=== PATIENT | female | born 1950 | race Caucasian/White ===

== ENCOUNTER 2024-06-30 11:33 | Inpatient (IN) | payer MEDICARE, OTHER ==
[~2024-06-30] VITALS: Ht 162.6 cm; Wt 75.4 kg
[2024-06-30 12:00] VITALS: RESP 13; O2SAT 97
--- NOTE | 2024-06-30 12:11 | ED.PDOC ---
GI ASSESSMENT HPI Comments 74y F who presents to the ED for chief complaint of GI bleeding. Pt states she got up this AM and states while using bathroom, he noticed bright red blood per rectum with associated dizziness and called EMS. Pt states bleeding has subsided prior to EMS arrival. EMS states pt had stable vitals upon arrival and brought to the ED. Pt in the ED, states she recently had colonoscopy and states a tumor in GI tract was found and states she was referred to oncologist. Pt in the ED, has noted BP of 103/55 and hr of 110 with all other vitals stable in the ED. Pt denies any other symptoms at this time. 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, Medications, Allergies Allergies: Coded Allergies: NO KNOWN ALLERGIES (Unverified , 06/30/24) Information Source: Patient, Emergency Med Personnel Mode of Arrival: EMS Brought in by: EMS Past Medical History PAST MEDICAL HISTORY: HTN Surgical History (Other): L knee replacement TUB PULLER History: Denies all TUB PULLER Hx Family History Family History: Unknown Social History Smoker: Non-Smoker Alcohol: Denies ETOH Use Drugs: Denies Drug Use Lives In: Home Constitutional: denies: chills, diaphoresis, fatigue, fever, malaise, sweats, weakness, others EENTM: denies: blurred vision, double vision, ear bleeding, ear discharge, ear drainage, ear pain, ear ringing, eye pain, eye redness, hearing loss, mouth pain, mouth swelling, nasal discharge, nose bleeding, nose congestion, nose pain, photophobia, tearing, throat pain, throat swelling, voice changes, others Respiratory: denies: cough, hemoptysis, orthopnea, SOB at rest, shortness of breath, SOB with excertion, stridor, wheezing, others Cardiovascular: denies: chest pain, dizzy spells, diaphoresis, Dyspnea on exertion, edema, irregular heart beat, left arm pain, lightheadedness, palpitations, PND, syncope, others Gastrointestinal: reports: rectal bleeding, rectal pain; denies: abdomen distended, abdominal pain, blood streaked bowels, constipated, diarrhea, dysphagia, difficulty swallowing, hematemesis, melena, nausea, poor appetite, poor fluid intake, vomiting, others Genitourinary: denies: abnormal vagina bleeding, burning, dyspareunia, dysuria, flank pain, frequency, hematuria, incontinence, pain, , vagina discharge, urgency, others Neurological: denies: dizziness, fainting, headache, left sided numbness, left sided weakness, numbness, paresthesia, pre-existing deficit, right sided numbnes s, right sided weakness, seizure, speech problems, tingling, tremors, weakness, others Musculoskeletal: denies: back pain, gout, joint pain, joint swelling, muscle pain, muscle stiffness, neck pain, others Integumetry: denies: bruises, change in color, change in hair/nails, dryness, laceration, lesions, lumps, rash, wounds, others Allergic/Immunocompromised: denies: Difficulty Healing, Frequent Infections, Hives, Itching, others Hematologic/Lymphatic: denies: anemia, blood clots, easy bleeding, easy bruising, swollen glands, others Endocrine: denies: excessive hunger, excessive sweating, excessive thirst, excessive urination, flushing, intolerance to cold, intolerance to heat, unexplained weight gain, unexplained weight loss, others Psychiatric: denies: anxiety, bipolar disorder, depression, hopeless, panic disorder, schizophrenia, sleepless, suicidal, others All Other Systems: Reviewed and Negative Physical Exam General Appearance: Moderate Distress HEENT: Normal ENT Inspection, Pharynx Normal, TMs Normal Neck: Full Range of Motion, Non-Tender, Normal, Normal Inspection Respiratory: Chest Non-Tender, Lungs Clear, No Accessory Muscle Use, No Respiratory Distress, Normal Breath Sounds Cardiovascular: No Edema, No JVD, No Murmur, No Gallop, Normal Peripheral Pulses, Tachycardia Breast Exam: Deferred Gastrointestinal: No Organomegaly, Non Tender, No Pulsatile Mass, Normal Bowel Sounds, Soft Genitalia: Deferred Pelvic: Deferred Rectal: Deferred Extremities: No calf tenderness, Normal capillary refill, Normal inspection, Normal range of motion, Non-tender, No pedal edema Musculoskeletal : Apperance: Normal Neurologic: Alert Cerebellar Function: NOT DONE Reflexes: NOT DONE Skin: Pallor Peripheral Pulses: 3+ Radial (R), 3+ Radial (L) Lymphatic: No Adenopathy Was a procedure done? Was a procedure done?: No GI differential Dx Differential Diagnosis: Constipation, Diverticular disease, Esophagitis, Ga stritis/PUD, Gastroenteritis, GI hemorrhage, Inflammatory BD, Ischemic Bowel, Trauma intraabdominal, Food Poisoning, Renal Failure, Ischemic Bowel, Stress Ulcer Other Differential Diagnosis colon cancer X-Ray, Labs, Meds, VS Vital Signs Date Time Temp Pulse Resp B/P (MAP) Pulse Ox O2 Delivery O2 Flow Rate FiO2 06/30/24 15:22 94 12 124/60 06/30/24 15:20 94 12 124/60 (81) 99 06/30/24 13:00 87 14 117/52 (73) 100 06/30/24 12:00 13 97 Room Air* 0 21 06/30/24 11:47 99.0 110 18 103/55 (71) 97 06/30/24 11:37 105 Lab Test 06/30/24 12:46 06/30/24 12:18 Range/Units White Blood Count 15.4 H 4.4-10.8 10^3/uL Red Blood Count 3.29 L 4.0-5.20 10^6/uL Hemoglobin 7.3 L 12.2-16.2 g/dL Hematocrit 23.3 L 36.0-46.0 % Mean Corpuscular Volume 70.9 L 80.0-100.0 fL Mean Corpuscular Hemoglobin 22.3 L 28.0-32.0 pg Mean Corpuscular Hemoglobin Concent 31.4 L 32.0-36.0 g/dL Red Cell Distribution Width 17.3 H 11.8-14.3 % Platelet Count 417 140-450 10^3/uL Mean Platelet Volume 6.0 L 6.9-10.8 fL Neutrophils (%) (Auto) 91.3 H 37.0-80.0 % Lymphocytes (%) (Auto) 3.9 L 10.0-50.0 % Monocytes (%) (Auto) 4.4 0.0-12.0 % Eosinophils (%) (Auto) 0.1 0.0-7.0 % Basophils (%) (Auto) 0.3 0.0-2.0 % Neutrophils # (Auto) 14.0 H 1.6-8.6 10 ^3/uL Lymphocytes # (Auto) 0.6 0.4-5.4 10 ^3/uL Monocytes # (Auto) 0.7 0-1.3 10 ^3/uL Eosinophils # (Auto) 0 0-0.8 10 ^3/uL Basophils # (Auto) 0 0-0.2 10 ^3/uL Nucleated Red Blood Cells 0.0 % Sodium Level 134 L 136-145 mmol/L Potassium Level 4.9 3.5-5.1 mmol/L Chloride Level 105 98-107 mmol/L Carbon Dioxide Level 25 20-31 mmol/L Anion Gap 4 L 5-15 Blood Urea Nitrogen 19 9-23 mg/dL Creatinine 0.80 0.550-1.02 mg/dL Glomerular Filtration Rate Calc 76 >90 mL/min BUN/Creatinine Ratio 23.8 H 10.0-20.0 Serum Glucose 93 74-106 mg/dL Calcium Level 8.8 8.7-10.4 mg/dL Troponin I High Sensitivity 4 </=34 ng/L Urine Color Light-yellow Yellow Urine Clarity Turbid H Clear Urine pH 6.5 5.0-9.0 Urine Specific [place] 1.015 1.001-1.035 Urine Protein Trace H Negative Urine Ketones Negative Negative Urine Blood 2+ H Negative /uL Urine Nitrite Negative Negative Urine Bilirubin Negative Negative Urine Urobilinogen Normal Negative mg/dL Urine Leukocyte Esterase 3+ Negative /uL Urine RBC 31 0 - 4 /hpf Urine WBC 54 0 - 5 /hpf Urine Squamous Epithelial Cells Few <5 /hpf Urine Bacteria Few H None Seen /hpf Urine Mucus Few None Seen Urine Glucose Normal Normal mg/dL Current Medications Medications (Trade) Dose Ordered Sig/Shayan Route Start Time Stop Time Status Last Admin Metronidazole 100 ml @ 100 mls/hr ONCE ONCE IV 06/30/24 13:15 06/30/24 14:14 DC 06/30/24 13:49 Ceftriaxone Sodium 50 ml @ 100 mls/hr ONCE ONCE IV 06/30/24 13:15 06/30/24 13:44 DC 06/30/24 13:49 Morphine Sulfate 2 mg ONCE ONCE IV 06/30/24 15:15 06/30/24 15:18 DC 06/30/24 15:22 Ondansetron HCl (Zofran) 4 mg ONCE ONCE IV 06/30/24 15:15 06/30/24 15:18 DC 06/30/24 15:21 PROCEDURE(s): CXRP - CHEST PORTABLE IMPRESSION: No acute cardiopulmonary abnormality. Patient alert. Complaining of GI bleeding. Bright red blood per rectum. Had a colonoscopy. Vitals stable pain Tachycardia. Blood pressure was on the low side in the field. Mild fever. Establish intravenous access. Was given fluids. GI consultation. Chest x-ray reviewed does not show any acute changes. EKG reviewed does not show any acute changes. Reviewed her previous visit. Explained to the patient. Time of 1ST Reevaluation: 12:40 Reevaluation 1ST: Unchanged Patient Education/Counseling: Diagnosis, Treatment Family Education/Counseling: No Family Present Departure 1 Departure Time of Disposition: 12:55 Impression: Primary Impression: GI bleed Qualified Codes: K92.2 - Gastrointestinal hemorrhage, unspecified Disposition: ADMITTED INPATIENT Admit to: Med Surg Condition: Guarded Critical Care Note Critical Care Time?: Yes (45 min-critical care time only) Critical care comment: GI bleed GI consultation Stability Stability form required: No Heart Score Heart Score: Heart Score Response (Comments) Value History N/A 0 EKG N/A 0 Age N/A 0 Risk Factors N/A 0 Troponin N/A 0 Total 0 I personally scribed for MAKAYLA CARIAS MD ([email or web address]) on 06/30/24 at 12:11. Electronically submitted by Hu Grimm ([email or web address]). I personally scribed for MAKAYLA CARIAS MD ([email or web address]) on 06/30/24 at 16:55. Electronically submitted by Hu MCKEON). MAKAYLA CARIAS MD Jun 30, 2024 12:11
--- NOTE | 2024-06-30 12:33 | DVH ---
EXAM: XY CHEST PORTABLE CLINICAL HISTORY: sob TECHNIQUE: Single AP view of the chest WID: COMPARISON: None FINDINGS: Lines and tubes: None Chest: The heart size and pulmonary vasculature is within normal limits. Mild calcified plaque projects over the aortic arch. No pleural effusion, pneumothorax, or consolidation. The osseous structures are grossly intact. IMPRESSION: No acute cardiopulmonary abnormality.
[2024-06-30 13:02] LABS: Urine Bacteria FEW /hpf (None Seen); Urine Blood 2+ /uL (Negative); Urine Clarity Turbid (Clear); Urine Color Light-Yellow (Yellow); Urine Mucus FEW (None Seen); Urine Protein, UAD TRACE (Negative); Urine Specific Gravity 1.015 (1.001-1.035); Urine Urobilinogen Normal (Negative); Urine WBC 54 /hpf (0 - 5); Urine pH 6.5 (5.0-9.0)
[2024-06-30 13:03] LABS: Basophils # (auto) 0 10 ^3/uL (0-0.2); Basophils % (auto) 0.3 % (0.0-2.0); Eosinophils # (auto) 0 10 ^3/uL (0-0.8); Eosinophils % (auto) 0.1 % (0.0-7.0)
[2024-06-30 13:05] LABS: Hematocrit 23.3 % (36.0-46.0); Hemoglobin 7.3 g/dL (12.2-16.2); Lymphocytes # (auto) 0.6 10 ^3/uL (0.4-5.4); Lymphocytes % (auto) 3.9 % (10.0-50.0); Mean Corpuscular Hemoglobin 22.3 pg (28.0-32.0); Mean Corpuscular Hgb Conc. 31.4 g/dL (32.0-36.0); Mean Corpuscular Volume 70.9 fL (80.0-100.0); Monocytes # (auto) 0.7 10 ^3/uL (0-1.3); Monocytes % (auto) 4.4 % (0.0-12.0); Neutrophils % (auto) 91.3 % (37.0-80.0); Platelet Count (auto) 417 10^3/uL (140-450); Red Blood Cells 3.29 10^6/uL (4.0-5.20); Red Cell Distribution Width 17.3 % (11.8-14.3); White Blood Cell 15.4 10^3/uL (4.4-10.8)
[2024-06-30 13:13] LABS: Chloride 105 mmol/L (98-107); Potassium 4.9 mmol/L (3.5-5.1); Sodium 134 mmol/L (136-145)
[2024-06-30 13:14] LABS: Anion Gap 4 (5-15); Carbon Dioxide 25 mmol/L (20-31)
[2024-06-30 13:15] LABS: Calcium 8.8 mg/dL (8.7-10.4)
[2024-06-30 13:20] LABS: BUN/Creatinine Ratio 23.8 (10.0-20.0); Blood Urea Nitrogen 19 mg/dL (9-23); Glucose 93 mg/dL (74-106)
[2024-06-30] MEDS: cefTRIAXone 1GM/50ML D5W 50 ML IV ONE (13:49)
[2024-06-30] MEDS: metroNIDAZOLE 500MG/100ML 100 ML IV ONE (13:49)
[2024-06-30] MEDS: ONDANSETRON HCL 4 MG/2 ML VIAL IV ONE (15:21)
[2024-06-30] MEDS: MORPHINE SULFATE INJ 2 MG/ml SYRG IV ONE (15:22)
[2024-06-30] MEDS ORDERED: ONDANSETRON HCL 4 MG/2 ML VIAL IV PRN (17:30)
[2024-06-30] MEDS ORDERED: CYCL0.05 EACHEYE (18:10)
[2024-06-30] MEDS ORDERED: TRAZ-227 PO (18:10)
[2024-06-30] MEDS ORDERED: ENAL1TAB48 PO (18:10)
[2024-06-30] MEDS ORDERED: AMLO1TAB22 PO (18:10)
--- NOTE | 2024-06-30 18:26 | DVHHP2 ---
History of Present Illness Reason for Visit: GI bleed History of Present Illness 74-year-old female presented to the ED with chief complaint of GI bleeding, patient states she got up this a.m. and use the bathroom and noticed bright red blood from the rectum, with associated dizziness and patient called EMS. Patient states that the bleeding stopped prior to EMS arrival. EMS states that patient had stable vitals on arrival and was brought to the ED. patient states she recently had a colonoscopy and states she has a tumor in her GI tract that is possibly cancerous and she was referred to an oncologist. Patient reports she has not had any bleeding since 0600 today. Patient denies chest pain, headache, dizziness, diaphoresis, shortness of breath, abdominal pain, no nausea, vomiting, fever, or chills endorsed by the patient. Patient was admitted for further evaluation medical management. Past Medical History Hypertension, insomnia, chronic back pain, colon cancer Past Surgical History Hip/knee surgery, back surgery Family History Reviewed noncontributory to the management of this case Smoke: No ALCOHOL: none Drugs: None Lives: with Family Review of Systems Constitutional: No: Fever, Chills, Sweats, Weakness, Malaise, Other Eyes: No: Pain, Vision change, Conjunctivae inflammation, Eyelid inflammation, Other, Redness ENT: No: Ear pain, Ear discharge, Nose pain, Nose discharge, Nose congestion, Mouth pain, Mouth swelling, Throat pain, Throat swelling, Other Respiratory: No: Cough, Dry, Shortness of breath, SOB with excertion, Wheezing, Hemoptysis, Pleuritic Pain, Sputum, Wheezing, Other Cardiovascular: No: Chest Pain, Palpitations, Orthopnea, Paroxysmal Noc. Dyspnea, Edema, Lt Headedness, Other Gastrointestinal: No: Nausea, Vomiting, Abdominal Pain, Diarrhea, Constipation, Melena, Hematochezia, Other Genitourinary: No Dysuria, No Frequency, No Incontinence, No Hematuria, No Retention, No Other Musculoskeletal: No: other, neck pain, shoulder pain, arm pain, back pain, hand pain, leg pain, foot pain Skin: No: Rash, Lesions, Jaundice, Bruising, Other Neurological: No: Weakness, Numbness, Incoordination, Change in speech, Confusion, Seizures, Other Allergies: Coded Allergies: NO KNOWN ALLERGIES (Unverified , 06/30/24) Medications Current Medications Medications Dose Ordered Sig/Shayan Route Start Time Stop Time Status Last Admin Dose Admin Ondansetron HCl 4 mg Q4HP PRN IV 06/30/24 17:30 Morphine Sulfate 2 mg Q4HPRN PRN IV 06/30/24 17:30 Pantoprazole Sodium 40 mg DAILY IV 06/30/24 17:45 Acetaminophen/ Hydrocodone Bitart 1 tab Q4HPRN PRN PO 06/30/24 18:15 UNV Amlodipine Besylate 5 mg BID PO 06/30/24 22:00 UNV Trazodone HCl 50 mg HS PO 06/30/24 22:00 UNV Enalapril Maleate 20 mg Q12HR PO 06/30/24 22:00 UNV Patient Own Medication 1 drop BID EACHEYE 06/30/24 22:00 UNV Exam Vital Signs Vital Signs Date Time Temp Pulse Resp B/P (MAP) Pulse Ox O2 Delivery O2 Flow Rate FiO2 06/30/24 15:22 94 12 124/60 06/30/24 15:20 99 06/30/24 12:00 Room Air* 0 21 06/30/24 11:47 99.0 General Appearance: Alert, Oriented X3, Cooperative, No acute distress HEENT: Atraumatic, PERRLA, EOMI, Mucous membr. moist/pink Respiratory: Clear to auscultation, Normal air movement Cardiovascular: Regular rate, Normal S1, Normal S2, No murmurs Abdominal: Normal bowel sounds, Soft, No tenderness, No hepatospenomegaly, No masses Extremities: No clubbing, No cyanosis, No edema, Normal pulses, No tenderness/swelling Skin: No rashes, No breakdown, No significant lesion Neuro: Normal gait, Normal speech, Normal tone, Sensation intact, Cranial nerves 3-12 NL, Reflexes 2+ Psych/Mental Status: Mental status NL, Mood NL Labs/Xrays Labs, imaging and ED notes reviewed Labs Test 06/30/24 12:46 06/30/24 12:18 Range/Units White Blood Count 15.4 H 4.4-10.8 10^3/uL Red Blood Count 3.29 L 4.0-5.20 10^6/uL Hemoglobin 7.3 L 12.2-16.2 g/dL Hematocrit 23.3 L 36.0-46.0 % Mean Corpuscular Volume 70.9 L 80.0-100.0 fL Mean Corpuscular Hemoglobin 22.3 L 28.0-32.0 pg Mean Corpuscular Hemoglobin Concent 31.4 L 32.0-36.0 g/dL Red Cell Distribution Width 17.3 H 11.8-14.3 % Platelet Count 417 140-450 10^3/uL Mean Platelet Volume 6.0 L 6.9-10.8 fL Neutrophils (%) (Auto) 91.3 H 37.0-80.0 % Lymphocytes (%) (Auto) 3.9 L 10.0-50.0 % Monocytes (%) (Auto) 4.4 0.0-12.0 % Eosinophils (%) (Auto) 0.1 0.0-7.0 % Basophils (%) (Auto) 0.3 0.0-2.0 % Neutrophils # (Auto) 14.0 H 1.6-8.6 10 ^3/uL Lymphocytes # (Auto) 0.6 0.4-5.4 10 ^3/uL Monocytes # (Auto) 0.7 0-1.3 10 ^3/uL Eosinophils # (Auto) 0 0-0.8 10 ^3/uL Basophils # (Auto) 0 0-0.2 10 ^3/uL Nucleated Red Blood Cells 0.0 % Sodium Level 134 L 136-145 mmol/L Potassium Level 4.9 3.5-5.1 mmol/L Chloride Level 105 98-107 mmol/L Carbon Dioxide Level 25 20-31 mmol/L Anion Gap 4 L 5-15 Blood Urea Nitrogen 19 9-23 mg/dL Creatinine 0.80 0.550-1.02 mg/dL Glomerular Filtration Rate Calc 76 >90 mL/min BUN/Creatinine Ratio 23.8 H 10.0-20.0 Serum Glucose 93 74-106 mg/dL Calcium Level 8.8 8.7-10.4 mg/dL Troponin I High Sensitivity 4 </=34 ng/L Urine Color Light-yellow Yellow Urine Clarity Turbid H Clear Urine pH 6.5 5.0-9.0 Urine Specific [place] 1.015 1.001-1.035 Urine Protein Trace H Negative Urine Ketones Negative Negative Urine Blood 2+ H Negative /uL Urine Nitrite Negative Negative Urine Bilirubin Negative Negative Urine Urobilinogen Normal Negative mg/dL Urine Leukocyte Esterase 3+ Negative /uL Urine RBC 31 0 - 4 /hpf Urine WBC 54 0 - 5 /hpf Urine Squamous Epithelial Cells Few <5 /hpf Urine Bacteria Few H None Seen /hpf Urine Mucus Few None Seen Urine Glucose Normal Normal mg/dL Assessment/Plan Assessment/Plan GI bleed secondary to GI tumor Admit to medical/surgical Consult GI Hemoglobin 7.3- pending blood transfusion Follow up a.m. 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 17:17 Bedside Commode [facility] 06/30/24 In Process 17:17 Notify Of Changes [facility] 06/30/24 In Process From Base 17:17 Advance Directive [facility] 06/30/24 In Process 17:17 Basic Metabolic Panel LAB 07/01/24 Verified 04:00 Complete Blood Count LAB 07/01/24 Verified 04:00 Patient Condition ORDERS 06/30/24 Transmitted 17:17 Allergies [facility] 06/30/24 In Process 17:17 Ondansetron Hcl [facility] 06/30/24 In Process (Zofran) 17:30 Morphine Sulfate PHA 06/30/24 In Process Injection 17:30 Pantoprazole PHA 06/30/24 In Process (Protonix) 17:45 Clear Liq Diet DIET 06/30/24 Transmitted Dinner Hydrocodone-Acet PHA 06/30/24 Logged 5/325mg Tab ([place] 18:15 Amlodipine Tablet PHA 06/30/24 Logged (Norvasc Tablet) 22:00 Trazodone Hcl PHA 06/30/24 Logged (Desyrel) 22:00 Enalapril Tablet PHA 06/30/24 Logged (Vasotec Tablet) 22:00 (Nf) Cyclosporine PHA 06/30/24 Logged (Ophth) (Restasis) 22:00 Date of Service: Jun 30, 2024 Billing Provider: MARLENY MESSER Common Visit Codes: [id number] INP/OBS CARE (HIGH) MARLENY MESSER Jun 30, 2024 18:26
[2024-06-30 18:46] VITALS: BP 120/57; PULSE 90; RESP 19; TEMP 97.6
[2024-06-30 18:50] VITALS: BP 120/57; PULSE 90; RESP 19; TEMP 97.4; O2SAT 99
[2024-06-30] MEDS: MORPHINE SULFATE INJ 2 MG/ml SYRG IV PRN (18:59)
[2024-06-30] MEDS: PANTOPRAZOLE 40 MG/10 ML VIAL INJ IV SCH (19:20)
--- NOTE | 2024-06-30 19:20 | ECG ---
[facility] Test Date: 2024-06-30 Test Time: 11:34:02 Pat Name: ABRAHAM DAVIS Department: ED Room: 0218 Gender: F Mill [employer]: CHARLES : 1950 Requested By: MAKAYLA CARIAS Order Number: [id number] Reading MD: Measurements Intervals Soldier Rate: 105 P: 23 SC: 152 QRS: 12 QRSD: 89 T: 53 QT: 319 QTc: 422 Interpretive Statements Sinus tachycardia Atrial premature complex Borderline low voltage, extremity leads Artifact in lead(s) I,III,aVR,aVL,V1,V2,V3,V4,V5,V6 Please click the below link to view image of tracing.
[2024-06-30 21:00] VITALS: BP_SYST 113; BP_SYST 117; BP_DIAS 52; BP_DIAS 54; PULSE 86; PULSE 92; RESP 18; RESP 20; TEMP 98.3; TEMP 99.1; O2SAT 93
[2024-06-30 21:24] VITALS: BP 115/56; PULSE 90; RESP 18; TEMP 98.4
[2024-06-30 21:25] VITALS: BP 115/56; PULSE 90; RESP 18; TEMP 98.4
[2024-06-30] MEDS: CYCLOSPORINE EACHEYE SCH (22:00)
[2024-06-30] MEDS: ENALAPRIL MALEATE 10 MG TAB PO SCH (22:32)
[2024-06-30] MEDS: amLODIPine BESYLATE 5 MG TAB PO SCH (22:33)
[2024-06-30] MEDS: traZODone HCL 50 MG TAB PO SCH (22:34)
[2024-07-01] VITALS (7 sets, daily range): BP systolic 106–123; BP diastolic 49–62; PULSE 74–95; RESP 17–19; TEMP 98.3–99.8; O2SAT 91–100
[2024-07-01 05:54] LABS: Basophils # (auto) 0.1 10 ^3/uL (0-0.2); Basophils % (auto) 0.5 % (0.0-2.0); Eosinophils # (auto) 0.1 10 ^3/uL (0-0.8); Hemoglobin 7.7 g/dL (12.2-16.2); Lymphocytes # (auto) 0.9 10 ^3/uL (0.4-5.4); Mean Corpuscular Hgb Conc. 32.3 g/dL (32.0-36.0)
[2024-07-01 05:57] LABS: Eosinophils % (auto) 0.5 % (0.0-7.0); Hematocrit 23.8 % (36.0-46.0); Mean Corpuscular Hemoglobin 23.6 pg (28.0-32.0); Monocytes % (auto) 9.3 % (0.0-12.0); Neutrophils % (auto) 81.7 % (37.0-80.0); Platelet Count (auto) 357 10^3/uL (140-450); Red Blood Cells 3.26 10^6/uL (4.0-5.20); Red Cell Distribution Width 20.5 % (11.8-14.3)
[2024-07-01 06:13] LABS: Chloride 105 mmol/L (98-107); Potassium 4.1 mmol/L (3.5-5.1); Sodium 137 mmol/L (136-145)
[2024-07-01 06:14] LABS: Anion Gap 7 (5-15); Calcium 8.7 mg/dL (8.7-10.4); Carbon Dioxide 25 mmol/L (20-31)
[2024-07-01 06:19] LABS: BUN/Creatinine Ratio 14.5 (10.0-20.0); Blood Urea Nitrogen 11 mg/dL (9-23); Glucose 91 mg/dL (74-106)
--- NOTE | 2024-07-01 08:53 | DVHPN2 ---
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 General Appearance: Alert, Oriented X3, Cooperative, No acute distress, Other (Pale) HEENT: Atraumatic, Other (Pale) Lungs: Clear to auscultation, Normal air movement Cardiovascular: Regular rate, Normal S1, Normal S2 Abdomen: Normal bowel sounds, Soft, No tenderness Rectal: Mass Extremities: No edema Neuro: Normal speech, Cranial nerves 3-12 NL Psych/Mental Status: Mental status NL, Mood NL Medications Current Medications Medications Dose Ordered Sig/Shayan Route Start Time Stop Time Status Last Admin Dose Admin Ondansetron HCl 4 mg Q4HP PRN IV 06/30/24 17:30 Morphine Sulfate 2 mg Q4HPRN PRN IV 06/30/24 17:30 07/01/24 08:34 2 MG Pantoprazole Sodium 40 mg DAILY IV 06/30/24 17:45 07/01/24 08:34 40 MG Acetaminophen/ Hydrocodone Bitart 1 tab Q4HPRN PRN PO 06/30/24 18:15 Amlodipine Besylate 5 mg BID PO 06/30/24 22:00 07/01/24 08:35 5 MG Trazodone HCl 50 mg HS PO 06/30/24 22:00 06/30/24 22:34 50 MG Enalapril Maleate 20 mg Q12HR PO 06/30/24 22:00 07/01/24 08:35 20 MG Patient Own Medication 1 drop BID EACHEYE 06/30/24 22:00 Laboratory Results Laboratory Tests 07/01/24 04:54 Chemistry Test 06/30/24 12:46 07/01/24 04:54 Calcium Level 8.8 mg/dL (8.7-10.4) 8.7 mg/dL (8.7-10.4) Urinalysis Test 06/30/24 12:18 Urine Color Light-yellow (Yellow) Urine Clarity Turbid (Clear) H Urine pH 6.5 (5.0-9.0) Urine Specific [place] 1.015 (1.001-1.035) Urine Protein Trace (Negative) H Urine Ketones Negative (Negative) Urine Blood 2+ /uL (Negative) H Urine Nitrite Negative (Negative) Urine Bilirubin Negative (Negative) Urine Urobilinogen Normal mg/dL (Negative) Urine Leukocyte Esterase 3+ /uL (Negative) Urine RBC 31 /hpf (0 - 4) Urine WBC 54 /hpf (0 - 5) Urine Squamous Epithelial Cells Few /hpf (<5) Urine Bacteria Few /hpf (None Seen) H Urine Mucus Few (None Seen) Urine Glucose Normal mg/dL (Normal) Labs and/or images reviewed: Labs reviewed by me, Image(s) reviewed by me Assessment/Plan Assessment/Plan A 74-year-old female patient; with past medical history of essential hypertension and severe dry eyes syndrome; who was recently developed rectal mass then underwent recent colonoscopy at [facility]; who presented to the emergency department with rectal bleed. #Sepsis due to suspected abdominal infection in the setting of suspected metastatic rectal cancer #Leukocytosis due to sepsis #PRUDENCE; most likely vasomotor nephropathy in the setting of sepsis Continue IV antibiotics Continue IV fluids Avoid nephrotoxic agents Continue close monitoring #GI bleed most likely due to bleeding rectal mass/suspected cancer #Acute blood loss anemia status post transfusion of 1 unit of packed RBCs #Suspected metastatic rectal cancer to inguinal lymph nodes #Rectal pain due to rectal mass/suspected cancer Ordered abdomen/pelvis CT then reviewed imaging studies GI onboard; advised outpatient follow up with GI and Oncology; advanced diet as tolerated To readdress doing biopsy from left inguinal lymphadenopathy with the patient before discharge Continue pain management as needed Keep close monitoring of hemoglobin and hematocrit #Essential hypertension Continue home medications and adjusting according to blood pressure readings #Severe dry eyes syndrome Continue home cyclosporine eyedrops Goals of care discussed for 20 minutes; full code 66 minutes of critical care time This medical document was created using an electronic medical record system with computerized dictation system. Although this document has been carefully reviewed, there might still be some phonetic and typographical errors. These areas are purely typographical due to imperfections of the software programs, and do not reflect any compromise in the patient's medical care. Plan discussed with: Patient, Other (Nurse) Date of Service: Jul 01, 2024 Billing Provider: ELEONORA BE MD Common Visit Codes: 89849-[id number] CARE 30-74 MIN (66 minutes) Secondary Visit Codes: [id number]-[id number] CARE PLAN 30 MINUTES (20 minutes) ELEONORA BE MD Jul 01, 2024 08:53
--- NOTE | 2024-07-01 09:59 | DVH ---
CT ABDOMEN AND PELVIS WITHOUT CONTRAST CLINICAL HISTORY: GI bleed. Thank You! TECHNIQUE: Multidetector CT of the abdomen was performed from lung bases to pubic symphysis. Imaging was performed without IV contrast. Axial, coronal and sagittal multiplanar reformats were obtained fr om the axial data set by the technologist. Radiation optimization: All CT scans at this facility use at least one of these dose optimization nelly hniques: automated exposure control mA and/or kV adjustment per patient size (includes targeted exam s where dose is matched to clinical indication) or iterative reconstruction. Radiation Dose Information: CT Dose: CTDI volume is 9.85 mGy. Dose-length product is 508.43 mGy*cm Comparison: None FINDINGS: [Findings] Evaluation of the abdominal viscera is limited without intravenous contrast. The liver, gallbladder, pancreas, kidneys, adrenal glands, and spleen appear within normal limits. There is no gross evidence of abdominal lymphadenopathy. There is no free fluid or free air. The stomach grossly appears unremarkable. The small and large bowel loops demonstrate normal caliber. Air intermixed with stool is seen throughout the colon. There is large amount of streak artifact from bilateral hip arthroplasties and lumbar spine fusion hussein rdware which limits evaluation of the pelvis. The distal rectum and anus are not adequately seen. Th ere is nonspecific moderate fat stranding in the mesorectal fat with scattered lymph nodes in the reg ion measuring up to 10 mm. There are also prominent right and left inguinal lymph nodes measuring 1.6 cm on the right and 1.3 cm on the left. The abdominal aorta and IVC appear within normal limits. Visualized bladder and uterus grossly appear unremarkable. There is no free fluid in the pelvis. There is dependent atelectasis in the posterior lung bases. There are degenerative changes in the lumbar spine. There is fusion hardware at the L4-L5 and L5-S1 levels. IMPRESSION: 1. Large amount of streak artifact from bilateral hip arthroplasties and lumbar spine fusion hardware limits evaluation of the pelvis. The distal rectum and anus are not adequately seen. There is nonspe cific moderate fat stranding in the mesorectal fat with scattered lymph nodes in this region measurin g up to 10 mm. There are also prominent right and left inguinal lymph nodes measuring up to 1.6 cm. T he etiology is nonspecific. Correlation with colonoscopy findings is recommended. Ultrasound-guided b iopsy of an inguinal lymph node may be performed if there is concern for malignancy/metastatic disedenilson talavera HS:Y
[2024-07-01] MEDS: cefTRIAXone 1GM/50ML D5W 50 ML IV SCH (11:12)
[2024-07-01] MEDS: metroNIDAZOLE 500MG/100ML 100 ML IV ONE (11:13)
[2024-07-01 12:16] LABS: Hematocrit 25.7 % (36.0-46.0); Hemoglobin 8.2 g/dL (12.2-16.2)
--- NOTE | 2024-07-01 13:17 | DVHINCON2 ---
GI Consult Consult Note GI consult note Date of Consultation: 07/01/2024 Chief Complaint: Lower GI bleeding Referring Physician: Dr. Jessica H&P: 74-year-old female admitted with GI bleeding. Patient had red blood rectally starting yesterday morning, no red blood now. No melena . No abdominal pain. No nausea or vomiting. Patient does not take any blood thinners Patient was hospitalized in [facility] a week ago with similar symptoms, SP colonoscopy, diagnosed with colon cancer, and was referred to radiation oncologist. Patient has weight loss of 10 lb in the last few weeks Past Medical History: HTN Past Surgical History: L knee replacement Social History: NO smoking, drinking ETOH and use of illegal drugs. Family History: Unknown Review of Systems: Constitutional: no fever, chill, weight loss Heart: no chest pain, no chest pressure Lung: no cough, no dyspnea with exertion Abdomen: see HPI Physical exam: General: NAD, AAOX3 Chest: lung ayala clear to auscultation Heart: RRR, no murmur Abdomen: non-distended, no tenderness to palpation, +BS Labs: Labs Test 07/01/24 11:54 07/01/24 04:54 06/30/24 12:46 06/30/24 12:18 Range/Units Hemoglobin 8.2 L 12.2-16.2 g/dL Hematocrit 25.7 L 36.0-46.0 % White Blood Count 11.0 #H 4.4-10.8 10^3/uL Red Blood Count 3.26 L 4.0-5.20 10^6/uL Mean Corpuscular Volume 73.0 L 80.0-100.0 fL Mean Corpuscular Hemoglobin 23.6 L 28.0-32.0 pg Mean Corpuscular Hemoglobin Concent 32.3 32.0-36.0 g/dL Red Cell Distribution Width 20.5 H 11.8-14.3 % Platelet Count 357 140-450 10^3/uL Mean Platelet Volume 6.7 L 6.9-10.8 fL Neutrophils (%) (Auto) 81.7 H 37.0-80.0 % Lymphocytes (%) (Auto) 8.0 L 10.0-50.0 % Monocytes (%) (Auto) 9.3 0.0-12.0 % Eosinophils (%) (Auto) 0.5 0.0-7.0 % Basophils (%) (Auto) 0.5 0.0-2.0 % Neutrophils # (Auto) 9.0 H 1.6-8.6 10 ^3/uL Lymphocytes # (Auto) 0.9 0.4-5.4 10 ^3/uL Monocytes # (Auto) 1.0 0-1.3 10 ^3/uL Eosinophils # (Auto) 0.1 0-0.8 10 ^3/uL Basophils # (Auto) 0.1 0-0.2 10 ^3/uL Nucleated Red Blood Cells 0.0 % Sodium Level 137 136-145 mmol/L Potassium Level 4.1 3.5-5.1 mmol/L Chloride Level 105 98-107 mmol/L Carbon Dioxide Level 25 20-31 mmol/L Anion Gap 7 5-15 Blood Urea Nitrogen 11 9-23 mg/dL Creatinine 0.76 0.550-1.02 mg/dL Glomerular Filtration Rate Calc 81 >90 mL/min BUN/Creatinine Ratio 14.5 10.0-20.0 Serum Glucose 91 74-106 mg/dL Calcium Level 8.7 8.7-10.4 mg/dL Troponin I High Sensitivity 4 </=34 ng/L Urine Color Light-yellow Yellow Urine Clarity Turbid H Clear Urine pH 6.5 5.0-9.0 Urine Specific [place] 1.015 1.001-1.035 Urine Protein Trace H Negative Urine Ketones Negative Negative Urine Blood 2+ H Negative /uL Urine Nitrite Negative Negative Urine Bilirubin Negative Negative Urine Urobilinogen Normal Negative mg/dL Urine Leukocyte Esterase 3+ Negative /uL Urine RBC 31 0 - 4 /hpf Urine WBC 54 0 - 5 /hpf Urine Squamous Epithelial Cells Few <5 /hpf Urine Bacteria Few H None Seen /hpf Urine Mucus Few None Seen Urine Glucose Normal Normal mg/dL Imaging: CT abdomen pelvis IMPRESSION: 1. Large amount of streak artifact from bilateral hip arthroplasties and lumbar spine fusion hardware limits evaluation of the pelvis. The distal rectum and anus are not adequately seen. There is nonspecific moderate fat stranding in the mesorectal fat with scattered lymph nodes in this region measuring up to 10 mm. There are also prominent right and left inguinal lymph nodes measuring up to 1.6 cm. The etiology is nonspecific. Correlation with colonoscopy findings is recommended. Ultrasound-guided biopsy of an inguinal lymph node may be performed if there is concern for malignancy/metastatic disease. Assessment: Acute GI bleed History of colon cancer Anemia Plan: Discussed with Dr. Hameed Monitor lab Obtain records from [facility] liquid diet advance as tolerated Outpatient follow-up with GI and oncology recommended Discussed plan with patient, and RN Thank you for this consult Date of Service: Jul 01, 2024 Billing Provider: CECE PACE Common Visit Codes: CONSULT ONLY Consultation Codes: [id number] CONSULT <45MIN CECE PACE Jul 01, 2024 13:17
[2024-07-01] MEDS: MORPHINE SULFATE INJ 2 MG/ml SYRG IV PRN (13:22)
[2024-07-01] MEDS: metroNIDAZOLE 500MG/100ML 100 ML IV SCH (16:38)
[2024-07-01] MEDS ORDERED: HYDR25TA4 PO (17:19)
[2024-07-01] MEDS ORDERED: LINA145C PO (17:19)
[2024-07-01] MEDS ORDERED: TIMO0.5S28 EACHEYE (17:19)
[2024-07-02 01:00] VITALS: BP 110/58; PULSE 86; RESP 18; TEMP 99.3; O2SAT 97
[2024-07-02 05:00] VITALS: BP 114/59; PULSE 82; RESP 18; TEMP 98; O2SAT 98
[2024-07-02 06:32] LABS: Basophils # (auto) 0 10 ^3/uL (0-0.2); Basophils % (auto) 0.4 % (0.0-2.0); Hemoglobin 7.9 g/dL (12.2-16.2); Lymphocytes # (auto) 1.2 10 ^3/uL (0.4-5.4); Lymphocytes % (auto) 12.7 % (10.0-50.0); Monocytes # (auto) 1.1 10 ^3/uL (0-1.3); Neutrophils # (auto) 6.9 10 ^3/uL (1.6-8.6)
[2024-07-02 06:34] LABS: Eosinophils # (auto) 0.1 10 ^3/uL (0-0.8); Hematocrit 24.3 % (36.0-46.0); Mean Corpuscular Hemoglobin 23.8 pg (28.0-32.0); Mean Corpuscular Hgb Conc. 32.4 g/dL (32.0-36.0); Mean Corpuscular Volume 73.6 fL (80.0-100.0); Monocytes % (auto) 11.7 % (0.0-12.0); Neutrophils % (auto) 74.2 % (37.0-80.0); Platelet Count (auto) 344 10^3/uL (140-450); Red Cell Distribution Width 20.7 % (11.8-14.3); White Blood Cell 9.3 10^3/uL (4.4-10.8)
[2024-07-02 06:44] LABS: Alanine Aminotransferase 10 U/L (7-40); Albumin 3.3 g/dL (3.2-4.8); Alkaline Phosphatase 58 U/L (46-116); Anion Gap 7 (5-15); Aspartate Aminotransferase 18 U/L (13-40); BUN/Creatinine Ratio 15.1 (10.0-20.0); Bilirubin, Total 0.4 mg/dL (0.2-1.0); Blood Urea Nitrogen 14 mg/dL (9-23); Calcium 8.7 mg/dL (8.7-10.4); Carbon Dioxide 23 mmol/L (20-31); Chloride 106 mmol/L (98-107); Glucose 96 mg/dL (74-106); Potassium 3.9 mmol/L (3.5-5.1); Sodium 136 mmol/L (136-145); Total Protein 4.9 g/dL (5.7-8.2)
[2024-07-02 08:56] VITALS: BP 132/68; PULSE 86; RESP 16; TEMP 97.8; O2SAT 98
--- NOTE | 2024-07-02 11:34 | DVHPN2 ---
Reviewed: Care Plan, H&P, Labs, Medications, Previous Orders, Radiology, Other (Consultation) Changes from previous H/P or p: No Changes Objective Vitals Vital Signs Date Time Temp Pulse Resp B/P (MAP) Pulse Ox O2 Delivery O2 Flow Rate FiO2 07/02/24 10:00 117/58 07/02/24 08:56 97.8 86 16 98 97.8 07/01/24 20:00 Room Air* 0 21 Intake/Output Intake and Output 07/02/24 07:00 Intake Total 550 ml Balance 550 ml Intake Oral 300 ml IV Total 250 ml # Voids 4 # Bowel Movements 3 General Appearance: Alert, Oriented X3, Cooperative, No acute distress, Other (Pale) HEENT: Atraumatic, Other (Pale) Lungs: Clear to auscultation, Normal air movement Cardiovascular: Regular rate, Normal S1, Normal S2 Abdomen: Normal bowel sounds, Soft, No tenderness Rectal: Mass Extremities: No edema Neuro: Normal speech, Cranial nerves 3-12 NL Psych/Mental Status: Mental status NL, Mood NL Medications Current Medications Medications Dose Ordered Sig/Shayan Route Start Time Stop Time Status Last Admin Dose Admin Ondansetron HCl 4 mg Q4HP PRN IV 06/30/24 17:30 Pantoprazole Sodium 40 mg DAILY IV 06/30/24 17:45 07/02/24 10:47 40 MG Acetaminophen/ Hydrocodone Bitart 1 tab Q4HPRN PRN PO 06/30/24 18:15 Amlodipine Besylate 5 mg BID PO 06/30/24 22:00 07/01/24 08:35 5 MG Trazodone HCl 50 mg HS PO 06/30/24 22:00 07/01/24 21:07 50 MG Enalapril Maleate 20 mg Q12HR PO 06/30/24 22:00 07/01/24 08:35 20 MG Patient Own Medication 1 drop BID EACHEYE 06/30/24 22:00 07/01/24 09:10 1 DROP Ceftriaxone Sodium 50 ml @ 100 mls/hr DAILY@09 IV 07/01/24 09:00 07/02/24 10:47 100 MLS/HR Metronidazole 100 ml @ 100 mls/hr Q8HR IV 07/01/24 14:00 07/02/24 05:25 100 MLS/HR Morphine Sulfate 2 mg Q2HPRN PRN IV 07/01/24 11:00 07/02/24 05:24 2 MG Laboratory Results Laboratory Tests 07/02/24 05:48 Chemistry Test 07/02/24 05:48 Albumin 3.3 g/dL (3.2-4.8) Calcium Level 8.7 mg/dL (8.7-10.4) Total Protein 4.9 g/dL (5.7-8.2) L LFT Test 07/02/24 05:48 Alanine Aminotransferase (ALT) 10 U/L (7-40) Alkaline Phosphatase 58 U/L (46-116) Aspartate Amino Transferase (AST) 18 U/L (13-40) Total Bilirubin 0.4 mg/dL (0.2-1.0) Urinalysis Test 06/30/24 12:18 Urine Color Light-yellow (Yellow) Urine Clarity Turbid (Clear) H Urine pH 6.5 (5.0-9.0) Urine Specific [place] 1.015 (1.001-1.035) Urine Protein Trace (Negative) H Urine Ketones Negative (Negative) Urine Blood 2+ /uL (Negative) H Urine Nitrite Negative (Negative) Urine Bilirubin Negative (Negative) Urine Urobilinogen Normal mg/dL (Negative) Urine Leukocyte Esterase 3+ /uL (Negative) Urine RBC 31 /hpf (0 - 4) Urine WBC 54 /hpf (0 - 5) Urine Squamous Epithelial Cells Few /hpf (<5) Urine Bacteria Few /hpf (None Seen) H Urine Mucus Few (None Seen) Urine Glucose Normal mg/dL (Normal) Labs and/or images reviewed: Labs reviewed by me, Image(s) reviewed by me Assessment/Plan Assessment/Plan Sepsis secondary to acute urinary tract infection: Blood cultures urine cultures Acute urinary tract infection: Rocephin Leukocytosis secondary to sepsis Acute kidney injury History of rectal cancer diagnosed at [facility] by colonoscopy one week ago, patient's PCP Dr. Meade arranging oncology consultation with Dr. London GI bleed secondary to rectal mass suspected cancer: GI consult by Dr. Judy Hameed appreciated Acute blood loss anemia status post 1 unit RBC transfusion Rectal pain due to rectal cancer Awaiting urine culture report Plan discussed with: Patient Date of Service: Jul 02, 2024 Billing Provider: TRINIDAD PACE MD Common Visit Codes: [id number] INP/OBS CARE(HIGH) TRINIDAD PACE MD Jul 02, 2024 11:34
[2024-07-02 13:00] VITALS: BP 125/73; PULSE 85; RESP 16; TEMP 97.5; O2SAT 96
[2024-07-02 17:00] VITALS: BP 133/68; PULSE 84; RESP 14; TEMP 98.1; O2SAT 98
[2024-07-02] MEDS: HYDROcodone-ACET 5/325MG TAB PO PRN (17:57)
--- NOTE | 2024-07-02 17:57 | DVHPN2 ---
Progress Note - Dictate Date Seen: Jul 02, 2024 Medical Necessity Reason Pt with a Central, PICC or Fol: No Subjective Pt seen at bedside No further bleeding Pt is now anxious to go home vital signs Vital Sign Date Time Temp Pulse Resp B/P (MAP) Pulse Ox O2 Delivery O2 Flow Rate FiO2 07/02/24 16:16 83 16 133/69 07/02/24 13:00 97.5 96 97.5 07/01/24 20:00 Room Air* 0 21 Total Intake and Output 07/01/24 07/01/24 07/02/24 15:00 23:00 07:00 Intake Total 50 ml 500 ml 0 ml Balance 50 ml 500 ml 0 ml medications Current Medications Medications Dose Ordered Sig/Shayan Route Start Time Stop Time Status Last Admin Dose Admin Ondansetron HCl 4 mg Q4HP PRN IV 06/30/24 17:30 Pantoprazole Sodium 40 mg DAILY IV 06/30/24 17:45 07/02/24 10:47 40 MG Acetaminophen/ Hydrocodone Bitart 1 tab Q4HPRN PRN PO 06/30/24 18:15 Amlodipine Besylate 5 mg BID PO 06/30/24 22:00 07/01/24 08:35 5 MG Trazodone HCl 50 mg HS PO 06/30/24 22:00 07/01/24 21:07 50 MG Enalapril Maleate 20 mg Q12HR PO 06/30/24 22:00 07/01/24 08:35 20 MG Patient Own Medication 1 drop BID EACHEYE 06/30/24 22:00 07/01/24 09:10 1 DROP Ceftriaxone Sodium 50 ml @ 100 mls/hr DAILY@09 IV 07/01/24 09:00 07/02/24 10:47 100 MLS/HR Metronidazole 100 ml @ 100 mls/hr Q8HR IV 07/01/24 14:00 07/02/24 15:46 100 MLS/HR Morphine Sulfate 2 mg Q2HPRN PRN IV 07/01/24 11:00 07/02/24 15:46 2 MG objective General: NAD, AAOX3 Chest: lung ayala clear to auscultation Heart: RRR, no murmur Abdomen: non-distended, no tenderness to palpation, +BS laboratory and microbiology Laboratory Tests 07/02/24 05:48 Test 07/02/24 05:48 Range/Units Serum Glucose 96 74-106 mg/dL CT SCAN ABD PELVIS IMPRESSION: 1. Large amount of streak artifact from bilateral hip arthroplasties and lumbar spine fusion hardware limits evaluation of the pelvis. The distal rectum and anus are not adequately seen. There is nonspecific moderate fat stranding in the mesorectal fat with scattered lymph nodes in this region measuring up to 10 mm. There are also prominent right and left inguinal lymph nodes measuring up to 1.6 cm. The etiology is nonspecific. Correlation with colonoscopy findings is recommended. Ultrasound-guided biopsy of an inguinal lymph node may be performed if there is concern for malignancy/metastatic disease. Problems(with codes): (1) Rectal mass (2) GI bleed Prognosis PLAN Advance diet as tolerated Hold aspirin and blood thinners Outpatient follow up with PCP next week Patient has been referred to Radiation oncologist and we will need Oncology referral Await final pathology report Prognosis remains guarded Plan discussed with: Patient, Other (Nurse) KEVAN MONROE MD Jul 02, 2024 17:57
[2024-07-02 21:00] VITALS: BP 116/63; PULSE 81; RESP 18; TEMP 98.1; O2SAT 94
[2024-07-03 01:00] VITALS: BP 122/65; PULSE 92; RESP 18; TEMP 97.9; O2SAT 93
[2024-07-03 04:38] LABS: Eosinophils # (auto) 0.2 10 ^3/uL (0-0.8); Hemoglobin 8.1 g/dL (12.2-16.2); Lymphocytes # (auto) 1.2 10 ^3/uL (0.4-5.4)
[2024-07-03 04:40] LABS: Alanine Aminotransferase 10 U/L (7-40); Albumin 3.3 g/dL (3.2-4.8); Alkaline Phosphatase 61 U/L (46-116); Anion Gap 4 (5-15); Aspartate Aminotransferase 15 U/L (13-40); BUN/Creatinine Ratio 17.9 (10.0-20.0); Bilirubin, Total 0.3 mg/dL (0.2-1.0); Blood Urea Nitrogen 15 mg/dL (9-23); Carbon Dioxide 25 mmol/L (20-31); Chloride 105 mmol/L (98-107); Glucose 92 mg/dL (74-106); Potassium 4.2 mmol/L (3.5-5.1); Sodium 134 mmol/L (136-145); Total Protein 4.9 g/dL (5.7-8.2)
[2024-07-03 04:41] LABS: Basophils # (auto) 0.1 10 ^3/uL (0-0.2); Basophils % (auto) 0.5 % (0.0-2.0); Eosinophils % (auto) 1.7 % (0.0-7.0); Hematocrit 24.4 % (36.0-46.0); Lymphocytes % (auto) 11.4 % (10.0-50.0); Mean Corpuscular Hemoglobin 24.3 pg (28.0-32.0); Mean Corpuscular Hgb Conc. 33.1 g/dL (32.0-36.0); Mean Corpuscular Volume 73.2 fL (80.0-100.0); Monocytes % (auto) 9.8 % (0.0-12.0); Neutrophils % (auto) 76.6 % (37.0-80.0); Platelet Count (auto) 344 10^3/uL (140-450); Red Blood Cells 3.33 10^6/uL (4.0-5.20); White Blood Cell 10.5 10^3/uL (4.4-10.8)
[2024-07-03 04:45] LABS: Red Cell Distribution Width 20.8 % (11.8-14.3)
[2024-07-03 05:00] VITALS: BP 118/68; PULSE 80; RESP 18; TEMP 97.7; O2SAT 95
[2024-07-03 05:48] LABS: Anisocytosis Slight; Hypochromia Slight; Ovalocytes FEW; Platelet Estimate Adequate
[2024-07-03] MEDS ORDERED: CIPR-173 PO (07:50)
--- NOTE | 2024-07-03 07:50 | DVHPN2 ---
Reviewed: Care Plan, H&P, Labs, Medications, Previous Orders, Radiology, Other (Consultation) Changes from previous H/P or p: No Changes Objective Vitals Vital Signs Date Time Temp Pulse Resp B/P (MAP) Pulse Ox O2 Delivery O2 Flow Rate FiO2 07/03/24 05:00 97.7 80 18 118/68 (85) 95 97.7 07/02/24 20:00 Room Air* 0 21 Intake/Output Intake and Output 07/03/24 07:00 Intake Total 1370 ml Output Total 700 ml Balance 670 ml Intake Oral 1220 ml IV Total 150 ml Output Urine Total 700 ml # Voids 8 # Bowel Movements 1 General Appearance: Alert, Oriented X3, Cooperative, No acute distress, Other (Pale) HEENT: Atraumatic, Other (Pale) Lungs: Clear to auscultation, Normal air movement Cardiovascular: Regular rate, Normal S1, Normal S2 Abdomen: Normal bowel sounds, Soft, No tenderness Rectal: Mass Extremities: No edema Neuro: Normal speech, Cranial nerves 3-12 NL Psych/Mental Status: Mental status NL, Mood NL Medications Current Medications Medications Dose Ordered Sig/Shayan Route Start Time Stop Time Status Last Admin Dose Admin Ondansetron HCl 4 mg Q4HP PRN IV 06/30/24 17:30 Pantoprazole Sodium 40 mg DAILY IV 06/30/24 17:45 07/02/24 10:47 40 MG Acetaminophen/ Hydrocodone Bitart 1 tab Q4HPRN PRN PO 06/30/24 18:15 07/03/24 06:01 1 TAB Amlodipine Besylate 5 mg BID PO 06/30/24 22:00 07/02/24 21:35 5 MG Trazodone HCl 50 mg HS PO 06/30/24 22:00 07/02/24 21:35 50 MG Enalapril Maleate 20 mg Q12HR PO 06/30/24 22:00 07/02/24 21:34 20 MG Patient Own Medication 1 drop BID EACHEYE 06/30/24 22:00 07/01/24 09:10 1 DROP Ceftriaxone Sodium 50 ml @ 100 mls/hr DAILY@09 IV 07/01/24 09:00 07/02/24 10:47 100 MLS/HR Metronidazole 100 ml @ 100 mls/hr Q8HR IV 07/01/24 14:00 07/03/24 06:02 100 MLS/HR Morphine Sulfate 2 mg Q2HPRN PRN IV 07/01/24 11:00 07/02/24 15:46 2 MG Laboratory Results Laboratory Tests 07/03/24 03:44 Chemistry Test 07/03/24 03:44 Albumin 3.3 g/dL (3.2-4.8) Calcium Level 9.0 mg/dL (8.7-10.4) Total Protein 4.9 g/dL (5.7-8.2) L LFT Test 07/03/24 03:44 Alanine Aminotransferase (ALT) 10 U/L (7-40) Alkaline Phosphatase 61 U/L (46-116) Aspartate Amino Transferase (AST) 15 U/L (13-40) Total Bilirubin 0.3 mg/dL (0.2-1.0) Urinalysis Test 06/30/24 12:18 Urine Color Light-yellow (Yellow) Urine Clarity Turbid (Clear) H Urine pH 6.5 (5.0-9.0) Urine Specific [place] 1.015 (1.001-1.035) Urine Protein Trace (Negative) H Urine Ketones Negative (Negative) Urine Blood 2+ /uL (Negative) H Urine Nitrite Negative (Negative) Urine Bilirubin Negative (Negative) Urine Urobilinogen Normal mg/dL (Negative) Urine Leukocyte Esterase 3+ /uL (Negative) Urine RBC 31 /hpf (0 - 4) Urine WBC 54 /hpf (0 - 5) Urine Squamous Epithelial Cells Few /hpf (<5) Urine Bacteria Few /hpf (None Seen) H Urine Mucus Few (None Seen) Urine Glucose Normal mg/dL (Normal) Labs and/or images reviewed: Labs reviewed by me, Image(s) reviewed by me Assessment/Plan Assessment/Plan Sepsis secondary to acute urinary tract infection: Blood cultures urine cultures Acute urinary tract infection: Rocephin Leukocytosis secondary to sepsis Acute kidney injury History of rectal cancer diagnosed at [facility] by colonoscopy one week ago, patient's PCP Dr. Tovar arranging oncology consultation with Dr. London GI bleed secondary to rectal mass suspected cancer: GI consult by Dr. Judy Hameed appreciated, advised outpatient follow up with the PCP and Oncologist Acute blood loss anemia hemoglobin 7.3 improved to 8.1 status post 1 unit RBC transfusion and stable Rectal pain due to rectal cancer Plan discussed with: Patient My Orders Orders - TRINIDAD PACE MD Procedure Category Date Status Time Communication Order ORDERS 07/02/24 Transmitted 11:24 Complete Blood Count LAB 07/04/24 Verified 05:00 Comprehensive LAB 07/04/24 Verified Metabolic Panel 05:00 Date of Service: Jul 03, 2024 Billing Provider: TRINIDAD PACE MD Common Visit Codes: [id number] INP/OBS CARE(HIGH) TRINIDAD PACE MD Jul 03, 2024 07:50
--- NOTE | 2024-07-03 07:55 | DVHDS2 ---
Discharge Summary Date of Admission Jun 30, 2024 at 17:17 Date of Discharge: Jul 03, 2024 Admitting Diagnosis Rectal bleeding Wounds: None Labs/Diagnostic Data: Laboratory Results Test 07/03/24 03:44 07/01/24 14:12 06/30/24 12:46 06/30/24 12:18 White Blood Count 10.5 10^3/uL (4.4-10.8) Red Blood Count 3.33 10^6/uL (4.0-5.20) Hemoglobin 8.1 g/dL (12.2-16.2) Hematocrit 24.4 % (36.0-46.0) Mean Corpuscular Volume 73.2 fL (80.0-100.0) Mean Corpuscular Hemoglobin 24.3 pg (28.0-32.0) Mean Corpuscular Hemoglobin Concent 33.1 g/dL (32.0-36.0) Red Cell Distribution Width 20.8 % (11.8-14.3) Platelet Count 344 10^3/uL (140-450) Mean Platelet Volume 6.6 fL (6.9-10.8) Neutrophils (%) (Auto) 76.6 % (37.0-80.0) Lymphocytes (%) (Auto) 11.4 % (10.0-50.0) Monocytes (%) (Auto) 9.8 % (0.0-12.0) Eosinophils (%) (Auto) 1.7 % (0.0-7.0) Basophils (%) (Auto) 0.5 % (0.0-2.0) Neutrophils # (Auto) 8.0 10 ^3/uL (1.6-8.6) Lymphocytes # (Auto) 1.2 10 ^3/uL (0.4-5.4) Monocytes # (Auto) 1.0 10 ^3/uL (0-1.3) Eosinophils # (Auto) 0.2 10 ^3/uL (0-0.8) Basophils # (Auto) 0.1 10 ^3/uL (0-0.2) Nucleated Red Blood Cells 0.0 % Platelet Estimate Adequate Clumped Platelets Few Hypochromasia (manual) Slight Anisocytosis (manual) Slight Microcytosis Slight Ovalocytes Few Fred Cells Few Sodium Level 134 mmol/L (136-145) Potassium Level 4.2 mmol/L (3.5-5.1) Chloride Level 105 mmol/L (98-107) Carbon Dioxide Level 25 mmol/L (20-31) Anion Gap 4 (5-15) Blood Urea Nitrogen 15 mg/dL (9-23) Creatinine 0.84 mg/dL (0.550-1.02) Glomerular Filtration Rate Calc 72 mL/min (>90) BUN/Creatinine Ratio 17.9 (10.0-20.0) Serum Glucose 92 mg/dL (74-106) Calcium Level 9.0 mg/dL (8.7-10.4) Total Bilirubin 0.3 mg/dL (0.2-1.0) Aspartate Amino Transferase (AST) 15 U/L (13-40) Alanine Aminotransferase (ALT) 10 U/L (7-40) Alkaline Phosphatase 61 U/L (46-116) Total Protein 4.9 g/dL (5.7-8.2) Albumin 3.3 g/dL (3.2-4.8) Carcinoembryonic Antigen 0.74 ng/mL (<=5.0) Troponin I High Sensitivity 4 ng/L (</=34) Urine Color Light-yellow (Yellow) Urine Clarity Turbid (Clear) Urine pH 6.5 (5.0-9.0) Urine Specific [place] 1.015 (1.001-1.035) Urine Protein Trace (Negative) Urine Ketones Negative (Negative) Urine Blood 2+ /uL (Negative) Urine Nitrite Negative (Negative) Urine Bilirubin Negative (Negative) Urine Urobilinogen Normal mg/dL (Negative) Urine Leukocyte Esterase 3+ /uL (Negative) Urine RBC 31 /hpf (0 - 4) Urine WBC 54 /hpf (0 - 5) Urine Squamous Epithelial Cells Few /hpf (<5) Urine Bacteria Few /hpf (None Seen) Urine Mucus Few (None Seen) Urine Glucose Normal mg/dL (Normal) Other Laboratory Tests 07/03/24 03:44 Brief Hx & Hospital Course: 74-year-old female who had colonoscopy and diagnosed with a rectal mass possible rectal cancer at [facility] one week ago came in for rectal bleeding hemoglobin was 7.3 improved to 8.1 after 1 unit RBC transfusion and stable CT abdomen pelvis without contrast showed rectal mass GI consultation by Dr. Juyd Hameed per patient are PCP Dr. Tovar is arranging consultation with the oncologist after the biopsy report UTI treated with Rocephin prescription for Cipro for UTI patient being discharged home advised to avoid aspirin and Motrin and follow up with the primary Dr for oncology consultation arrangement. Condition stable at the time of discharge. Consults/Reason for consult GI Dr. Judy Hameed Operations or Procedures CT abdomen pelvis without contrast Condition at Discharge: Fair Final Diagnosis/Problems List Sepsis secondary to acute urinary tract infection: Blood cultures urine cultures Acute urinary tract infection: Rocephin Leukocytosis secondary to sepsis Acute kidney injury History of rectal cancer diagnosed at [facility] by colonoscopy one week ago, patient's PCP Dr. Tovar arranging oncology consultation with Dr. London GI bleed secondary to rectal mass suspected cancer: GI consult by Dr. Judy Hameed appreciated, advised outpatient follow up with the PCP and Oncologist Acute blood loss anemia hemoglobin 7.3 improved to 8.1 status post 1 unit RBC transfusion and stable Rectal pain due to rectal cancer Discharge Disposition: Home Discharge Instruct/Medications Diet: Regular Activity: Light activity Follow Up/Referral: Use medications as prescribed Do not use any aspirin or ibuprofen Follow up with your primary Dr Tovar tomorrow for arranging oncology consultation for your possible rectal cancer Medications: Cipro Transmitted to pharmacy 36 (Time taken for discharge summary 36 minutes) Discharge Statement: "Patient was advised to return to the ER or call 911 if any headaches, dizziness, shortness of breath, chest pain, abdominal pain, bleeding, fevers, or worsening of medical condition. Patient was counseled about treatment plan, medications, possible side effects, patientverbalized understanding. All questions were answered to the best of my ability. This discharge took greater then 30 minutes in planning, reviewing documentation, counseling the patient, and discussing with other team members." ASSESSMENT ASSESSMENT Hospital Course Improved Assessment Sepsis secondary to acute urinary tract infection: Blood cultures urine cultures Acute urinary tract infection: Rocephin Leukocytosis secondary to sepsis Acute kidney injury History of rectal cancer diagnosed at [facility] by colonoscopy one week ago, patient's PCP Dr. Tovar arranging oncology consultation with Dr. London GI bleed secondary to rectal mass suspected cancer: GI consult by Dr. Judy Hameed appreciated, advised outpatient follow up with the PCP and Oncologist Acute blood loss anemia hemoglobin 7.3 improved to 8.1 status post 1 unit RBC transfusion and stable Rectal pain due to rectal cancer Date of Service: Jul 03, 2024 Billing Provider: TRINIDAD PACE MD Common Visit Codes: [id number] DISCH DAY >30min TRINIDAD PACE MD Jul 03, 2024 07:55
[2024-07-03 08:04] VITALS: BP 114/63; PULSE 64; RESP 18; TEMP 98.2; O2SAT 98
== END 2024-07-03 12:07 | disposition home or self-care (01) | DRG 871 ==
LOC: EDBD 11:33 → ER 11:38 → OVERFLOW 17:17 → CENTRAL 17:32
PROVIDERS: ADMIT Registered Nurse General Practice; ATTEND Internal Medicine
PROC: 30233N1 Transfusion of Nonautologous Red Blood Cells into Peripheral Vein, Percutaneous Approach (ICD-10-PCS; principal; 2024-06-30)
DX: A41.9 Sepsis, unspecified organism (principal); N17.0 Acute kidney failure with tubular necrosis; C20 Malignant neoplasm of rectum; K92.2 Gastrointestinal hemorrhage, unspecified; N39.0 Urinary tract infection, site not specified; D62 Acute posthemorrhagic anemia; G47.00 Insomnia, unspecified; G89.29 Other chronic pain; I10 Essential (primary) hypertension; Z96.652 Presence of left artificial knee joint; H04.129 Dry eye syndrome of unspecified lacrimal gland; K62.9 Disease of anus and rectum, unspecified
CPT/HCPCS: 36415; 71045; 74176; 80048; 80053; 81001; 82378; 84484; 85014; 85018; 85025; 86850; 86900; 86901; 86920; 87086; 93005; 96374; 96375; 99291; G0378; J2405; J2470; J3490

== ENCOUNTER 2024-09-19 16:07 | Emergency (ER) | payer MEDICARE ==
[~2024-09-19] VITALS: Ht 157.5 cm; Wt 66.7 kg
[~2024-09-19 16:07] MED LIST: AMLO1TAB22 PO; CIPR-173 PO; CYCL0.05 EACHEYE; ENAL1TAB48 PO; HYDR25TA4 PO; LINA145C PO; TIMO0.5S28 EACHEYE; TRAZ-227 PO
--- NOTE | 2024-09-19 18:39 | ED.PDOC ---
General HPI Comments 74y F who presents to the ED for chief complaint of urinary complaints. Pt states she has been having urinary symptoms since may and states she continued have symptoms for 3 continuous weeks and states she given abx but states she continued to have symptoms and PCP had pt hospitalized. Pt states she had colonoscopy and was dx with rectal cancer. Pt states she has been receiving treatment but states over the past few weeks, she has continued to have UTI symptoms and came to the ED for evaluation. Pt states she has been having urgency, frequency and painful dysuria and came to the ED for evaluation. Pt otherwise denies hematuria, fever,cough, chills, chest pain or shortness of breath. Pt otherwise denies any other symptoms at this time. Chief Complaint: Urinary Time Seen by MD: 18:38 Primary Care Provider: chadwick Reviewed notes: Nurses Notes Allergies: Coded Allergies: NO KNOWN ALLERGIES (Unverified , 06/30/24) Home Meds Active Scripts Sulfamethoxazole W/Trimethopri (Bactrim Ds Tablet) 1 Tab Tb, 1 TAB PO BID for 10 Days, #20 TAB Prov:MERYL DYE MD 09/19/24 Ciprofloxacin Hcl (Cipro) 500 Mg Tab, 1 TAB PO BID, #14 TAB Prov:TRINIDAD PACE MD 07/03/24 Reported Medications Linaclotide Base (LINZESS) 145 Mcg Cap, 145 MCG PO DAILY@BREAKFAST, CAP TAKE 1 CAPSULE BY MOUTH DAILY 30 MINUTES BEFORE FIRST MEAL OF THE DAY ON AN EMPTY STOMACH. 07/01/24 Hydrochlorothiazide (Hydrochlorothiazide) 25 Mg Tab, 25 MG PO DAILY, TAB 07/01/24 Timolol Maleate (Timolol Maleate Ophthalmi) 0.5 % Shira, 1 DROP EACHEYE DAILY, ML 07/01/24 Trazodone Hcl (Trazodone Hcl) 50 Mg Tab, 1 TAB PO HS 06/30/24 Amlodipine Besylate (Amlodipine Besylate) 5 Mg Tab, 1 TAB PO BID 06/30/24 Enalapril Maleate (Enalapril Maleate) 20 Mg Tab, 1 TAB PO BID 06/30/24 Cyclosporine (Ophth) (Restasis) 0.05 % Emu, 1 DROP EACHEYE BID 06/30/24 Information Source: Patient Mode of Arrival: Ambulatory Brought in by: self Past Medical History PAST MEDICAL HISTORY: HTN Past Medical History (Other): rectal cancer MARINE INSULATOR History: Denies all MARINE INSULATOR Hx Family History Family History: Unknown Social History Smoker: Non-Smoker Alcohol: Denies ETOH Use Drugs: Denies Drug Use Lives In: Home Constitutional: denies: chills, diaphoresis, fatigue, fever, malaise, sweats, weakness, others EENTM: denies: blurred vision, double vision, ear bleeding, ear discharge, ear drainage, ear pain, ear ringing, eye pain, eye redness, hearing loss, mouth pain, mouth swelling, nasal discharge, nose bleeding, nose congestion, nose pain, photophobia, tearing, throat pain, throat swelling, voice changes, others Respiratory: denies: cough, hemoptysis, orthopnea, SOB at rest, shortness of breath, SOB with excertion, stridor, wheezing, others Cardiovascular: denies: chest pain, dizzy spells, diaphoresis, Dyspnea on exertion, edema, irregular heart beat, left arm pain, lightheadedness, palpitations, PND, syncope, others Gastrointestinal: denies: abdomen distended, abdominal pain, blood streaked bowels, constipated, diarrhea, dysphagia, difficulty swallowing, hematemesis, melena, nausea, poor appetite, poor fluid intake, rectal bleeding, rectal pain, vomiting, others Genitourinary: reports: burning, dysuria, frequency; denies: abnormal vagina bleeding, dyspareunia, flank pain, hematuria, incontinence, pain, , vagina discharge, urgency, others Neurological: denies: dizziness, fainting, headache, left sided numbness, left sided weakness, numbness, paresthesia, pre-existing deficit, right sided numbness, right sided weakness, seizure, speech problems, tingling, tremors, weakness, others Musculoskeletal: denies: back pain, gout, joint pain, joint swelling, muscle pain, muscle stiffness, neck pain, others Integumetry: denies: bruises, change in color, change in hair/nails, dryness, laceration, lesions, lumps, rash, wounds, others Allergic/Immunocompromised: denies: Difficulty Healing, Frequent Infections, Hives, Itching, others Hematologic/Lymphatic: denies: anemia, blood clots, easy bleeding, easy bruising, swollen glands, others Endocrine: denies: excessive hunger, excessive sweating, excessive thirst, excessive urination, flushing, intolerance to cold, intolerance to heat, unexplained weight gain, unexplained weight loss, others Psychiatric: denies: anxiety, bipolar disorder, depression, hopeless, panic disorder, schizophrenia, sleepless, suicidal, others All Other Systems: Reviewed and Negative Physical Exam General Appearance: Mild Distress, Normal HEENT: Normal ENT Inspection, Pharynx Normal, TMs Normal Neck: Full Range of Motion, Non-Tender, Normal, Normal Inspection Respiratory: Chest Non-Tender, Lungs Clear, No Accessory Muscle Use, No Respiratory Distress, Normal Breath Sounds Cardiovascular: No Edema, No JVD, No Murmur, No Gallop, Normal Peripheral Pulses, Regular Rate/Rhythm Breast Exam: Deferred Gastrointestinal: No Organomegaly, Non Tender, No Pulsatile Mass, Normal Bowel Sounds, Soft Genitalia: Deferred Pelvic: Deferred Rectal: Deferred Extremities: No calf tenderness, Normal capillary refill, Normal inspection, Normal range of motion, Non-tender, No pedal edema Musculoskeletal : Apperance: Normal Neurologic: Alert, rehabilitation manager II-XII nml as Tested, No Motor Deficits, Normal Affect, Normal Mood, No Sensory Deficits Cerebellar Function: Normal Reflexes: Normal Skin: Dry, Normal Color, Warm Lymphatic: No Adenopathy Was a procedure done? Was a procedure done?: No Differential Diagnosis Kidney stone (Female): Other Kidney stone (Male): Other Penile/Scrotal: Other Urinary Problem (Female): PID, Pyelonephritis, Urinary retention, UTI X-Ray, Labs, Meds, VS Vital Signs Date Time Temp Pulse Resp B/P (MAP) Pulse Ox O2 Delivery O2 Flow Rate FiO2 09/19/24 20:32 98.0 107 16 124/70 (88) 98 98.0 09/19/24 16:41 Room Air 09/19/24 16:41 98.6 116 17 191/72 (111) 100 98.6 09/19/24 16:41 98.6 116 17 141/72 (95) 100 Lab Test 09/19/24 16:34 Range/Units Urine Color Light-yellow Yellow Urine Clarity Turbid H Clear Urine pH 6.5 5.0-9.0 Urine Specific [place] 1.011 1.001-1.035 Urine Protein Trace H Negative Urine Ketones Negative Negative Urine Blood Negative Negative /uL Urine Nitrite Negative Negative Urine Bilirubin Negative Negative Urine Urobilinogen Normal Negative mg/dL Urine Leukocyte Esterase 3+ Negative /uL Urine RBC 2 0 - 4 /hpf Urine Microscopic WBC 71 H 0-5 /HPF Urine Squamous Epithelial Cells Few <5 /hpf Urine Bacteria None seen None Seen /hpf Urine Glucose Normal Normal mg/dL Current Medications Medications (Trade) Dose Ordered Sig/Shayan Route Start Time Stop Time Status Last Admin Phenazopyridine HCl (Pyridium Tablet) 100 mg ONCE ONCE PO 09/19/24 19:15 09/19/24 19:16 DC 09/19/24 20:20 Ceftriaxone Sodium (Rocephin) 1,000 mg ONCE ONCE IM 09/19/24 20:45 09/19/24 20:46 DC 09/19/24 20:55 Time of 1ST Reevaluation: 19:10 Reevaluation 1ST: Unchanged Time of 2ND Reevaluation: 20:30 Reevaluation 2ND: Improved Patient Education/Counseling: Diagnosis, Treatment Family Education/Counseling: No Family Present Departure 1 Departure Time of Disposition: 20:30 Impression: Primary Impression: Urinary tract infection Disposition: HOME / SELF CARE / HOMELESS Condition: Stable e-Prescriptions Sulfamethoxazole W/Trimethopri (Bactrim Ds Tablet) 1 Tab Tb 1 TAB PO BID for 10 Days, #20 TAB Prov: MERYL DYE MD 09/19/24 Discharged With: Self Critical Care Note Critical Care Time?: No Stability Stability form required: No Heart Score Heart Score: Heart Score Response (Comments) Value History N/A 0 EKG N/A 0 Age N/A 0 Risk Factors N/A 0 Troponin N/A 0 Total 0 I personally scribed for MERYL DYE MD ([email or web address]) on 09/19/24 at 18:39. Electronically submitted by Hu Grimm ([email or web address]). MERYL DYE MD Sep 19, 2024 18:39
[2024-09-19] MEDS ORDERED: BACDST PO (20:07)
[2024-09-19] MEDS: PHENAZOPYRIDINE HCL 100 MG TAB PO ONE (20:20)
[2024-09-19 20:32] VITALS: BP 124/70; PULSE 107; RESP 16; TEMP 98; O2SAT 98
[2024-09-19 20:38] LABS: Urine Bacteria None Seen /hpf (None Seen)
[2024-09-19 20:49] LABS: Urine Blood Negative /uL (Negative); Urine Clarity Turbid (Clear); Urine Color Light-Yellow (Yellow); Urine Protein, UAD TRACE (Negative); Urine Specific Gravity 1.011 (1.001-1.035); Urine Squamous Epithelial Cell FEW /hpf (<5); Urine Urobilinogen Normal (Negative); Urine WBC 71 /HPF (0-5); Urine pH 6.5 (5.0-9.0)
[2024-09-19] MEDS: cefTRIAXone W LIDOCAINE 1 GM IM IM ONE (20:52)
[2024-09-19] MEDS: cefTRIAXone SOD 1,000 MG VL IM ONE (20:55)
== END 2024-09-19 21:10 | disposition home or self-care (01) ==
LOC: ER 16:07
DX: N39.0 Urinary tract infection, site not specified (principal)
CPT/HCPCS: 81001; 96372; 99283; J0696

== ENCOUNTER 2025-07-03 16:31 | Emergency (ER) | payer MEDICARE ==
[~2025-07-03] VITALS: Ht 160 cm; Wt 77.0 kg
[~2025-07-03 16:31] MED LIST changes: +BACDST PO
--- NOTE | 2025-07-03 17:47 | ED.PDOC ---
History of Present Illness HPI Comments This is a 75 year old female BIBA presenting to the ED with chief complaint of KWASI drain concern. Patient reports that she had recent rectal surgery performed on 06/20 and since then has had 3 KWASI drains, a colostomy, and a Hernandez catheter placed. Patient relays that her son is unable to take care of her part time and she needs mcfp placement due to this. Patient states that supposedly her KWASI drain has not been draining as usual for the past 2 days. Patient denies any fever, N/V/D, abdominal pain, chest pain, or SOB. Chief Complaint: Tube Replacement Time Seen by MD: 17:45 Primary Care Provider: chadwick Reviewed Notes: Nurses Notes, Medications, Allergies Allergies: Coded Allergies: NO KNOWN ALLERGIES (Unverified , 06/30/24) Home Meds Active Scripts Sulfamethoxazole W/Trimethopri (Bactrim Ds Tablet) 1 Tab Tb, 1 TAB PO BID for 10 Days, #20 TAB Prov:MERYL DYE MD 09/19/24 Ciprofloxacin Hcl (Cipro) 500 Mg Tab, 1 TAB PO BID, #14 TAB Prov:TRINIDAD PACE MD 07/03/24 Reported Medications Linaclotide Base (LINZESS) 145 Mcg Cap, 145 MCG PO DAILY@BREAKFAST, CAP TAKE 1 CAPSULE BY MOUTH DAILY 30 MINUTES BEFORE FIRST MEAL OF THE DAY ON AN EMPTY STOMACH. 07/01/24 Hydrochlorothiazide (Hydrochlorothiazide) 25 Mg Tab, 25 MG PO DAILY, TAB 07/01/24 Timolol Maleate (Timolol Maleate Ophthalmi) 0.5 % Shira, 1 DROP EACHEYE DAILY, ML 07/01/24 Trazodone Hcl (Trazodone Hcl) 50 Mg Tab, 1 TAB PO HS 06/30/24 Amlodipine Besylate (Amlodipine Besylate) 5 Mg Tab, 1 TAB PO BID 06/30/24 Enalapril Maleate (Enalapril Maleate) 20 Mg Tab, 1 TAB PO BID 06/30/24 Cyclosporine (Ophth) (Restasis) 0.05 % Emu, 1 DROP EACHEYE BID 06/30/24 Information Source: Patient Mode of Arrival: EMS Severity: Moderate Timing: Days Duration: Since onset Prehospital treatment: None Past Medical History PAST MEDICAL HISTORY: HTN Surgical History (Other): Rectal surgery DATABASE ADMINISTRATOR History: Denies all DATABASE ADMINISTRATOR Hx Family History Family History: Unknown Social History Smoker: Non-Smoker Alcohol: Denies ETOH Use Drugs: Denies Drug Use Lives In: Home Constitutional: denies: chills, diaphoresis, fatigue, fever, malaise, sweats, weakness, others EENTM: denies: blurred vision, double vision, ear bleeding, ear discharge, ear drainage, ear pain, ear ringing, eye pain, eye redness, hearing loss, mouth pain, mouth swelling, nasal discharge, nose bleeding, nose congestion, nose pain, photophobia, tearing, throat pain, throat swelling, voice changes, others Respiratory: denies: cough, hemoptysis, orthopnea, SOB at rest, shortness of breath, SOB with excertion, stridor, wheezing, others Cardiovascular: denies: chest pain, dizzy spells, diaphoresis, Dyspnea on exertion, edema, irregular heart beat, left arm pain, lightheadedness, palpitations, PND, syncope, others Gastrointestinal: denies: abdomen distended, abdominal pain, blood streaked bowels, constipated, diarrhea, dysphagia, difficulty swallowing, hematemesis, melena, nausea, poor appetite, poor fluid intake, rectal bleeding, rectal pain, vomiting, others Genitourinary: denies: abnormal vagina bleeding, burning, dyspareunia, dysuria, flank pain, frequency, hematuria, incontinence, pain, , vagina discharge, urgency, others Neurological: denies: dizziness, fainting, headache, left sided numbness, left sided weakness, numbness, paresthesia, pre-existing deficit, right sided numbness, right sided weakness, seizure, speech problems, tingling, tremors, weakness, others Musculoskeletal: denies: back pain, gout, joint pain, joint swelling, muscle pain, muscle stiffness, neck pain, others Integumetry: denies: bruises, change in color, change in hair/nails, dryness, laceration, lesions, lumps, rash, wounds, others Allergic/Immunocompromised: denies: Difficulty Healing, Frequent Infections, Hives, Itching, others Hematologic/Lymphatic: denies: anemia, blood clots, easy bleeding, easy bruising, swollen glands, others Endocrine: denies: excessive hunger, excessive sweating, excessive thirst, excessive urination, flushing, intolerance to cold, intolerance to heat, unexplained weight gain, unexplained weight loss, others Psychiatric: denies: anxiety, bipolar disorder, depression, hopeless, panic disorder, schizophrenia, sleepless, suicidal, others All Other Systems: Reviewed and Negative Physical Exam General Appearance: No Apparent Distress, Normal HEENT: Normal ENT Inspection, Pharynx Normal, TMs Normal Neck: Full Range of Motion, Non-Tender, Normal, Normal Inspection Respiratory: Chest Non-Tender, Lungs Clear, No Accessory Muscle Use, No Respiratory Distress, Normal Breath Sounds Cardiovascular: No Edema, No JVD, No Murmur, No Gallop, Normal Peripheral Pulses, Regular Rate/Rhythm Breast Exam: Deferred Gastrointestinal: No Organomegaly, Non Tender, No Pulsatile Mass, Normal Bowel Sounds, Soft, Other (Colostomy in place, [address] place) Genitalia: Other (Hernandez catheter in place) Pelvic: Deferred Rectal: Deferred Extremities: No calf tenderness, Normal capillary refill, Normal inspection, Normal range of motion, Non-tender, No pedal edema Musculoskeletal : Apperance: Normal Neurologic: Alert, new car make ready worker II-XII nml as Tested, No Motor Deficits, Normal Affect, Normal Mood, No Sensory Deficits Cerebellar Function: Normal Reflexes: Normal Skin: Dry, Normal Color, Warm Lymphatic: No Adenopathy Was a procedure done? Was a procedure done?: No Differential Dx Considerations may include: Caregiver strain, rectal surgery, X-Ray, Labs, Meds, VS Vital Signs Date Time Temp Pulse Resp B/P (MAP) Pulse Ox O2 Delivery O2 Flow Rate FiO2 07/03/25 16:38 97.6 98 18 114/63 100 97.6 X-Ray, Labs, Meds, VS Comment Patient be discharged to [facility]. Time of 1ST Reevaluation: 18:44 Reevaluation 1ST: Unchanged Patient Education/Counseling: Diagnosis, Treatment Family Education/Counseling: No Family Present SEPSIS Sepsis Screen Date sepsis recognized/suspect: Jul 03, 2025 Time Sepsis recognized/suspect: 1640 Recent Procedure: Yes (RECTAL SURGERY 06/20/25) On Antibiotic Therapy: No Respiratory Rate >20: No Heart Rate >90: No Temp<36 C (96.8 F) or >38.3 C: No SBP <90 or MAP <65 mmHG: No New Acute Mental Status Change: No Is the patient on CPAP, BIPAP,: No Physician Orders * Copy Chaser Consult (07/03/25 ) Vital Signs Date Time Temp Pulse Resp B/P (MAP) Pulse Ox O2 Delivery O2 Flow Rate FiO2 07/03/25 16:38 97.6 98 18 114/63 100 97.6 Departure 1 Departure Time of Disposition: 19:46 Impression: Primary Impression: History of rectal surgery Disposition: 01 HOME / SELF CARE / HOMELESS Condition: Stable Discharged With: Self Critical Care Note Critical Care Time?: No Stability Stability form required: No Heart Score Heart Score: Heart Score Response (Comments) Value History N/A 0 EKG N/A 0 Age N/A 0 Risk Factors N/A 0 Troponin N/A 0 Total 0 I personally scribed for XENA VILLALOBOS ([email or web address]) on 07/03/25 at 17:47. Electronically submitted by Henok Concepcion ([email or web address]). XENA VILLALOBOS Jul 03, 2025 17:47
[2025-07-03 20:18] VITALS: BP 118/74; PULSE 90; RESP 15; TEMP 97; O2SAT 97
== END 2025-07-03 20:20 | disposition home or self-care (01) ==
LOC: ER 16:31 → EDBD 16:31 → ER 20:20
DX: Z93.3 Colostomy status (principal); Z46.6 Encounter for fitting and adjustment of urinary device; I10 Essential (primary) hypertension; Z79.621 Long term (current) use of calcineurin inhibitor; Z79.899 Other long term (current) drug therapy